=== PATIENT | female | born 1960 | race Native Hawaiian/Other Pacific Islander ===

== ENCOUNTER 2016-08-25 11:41 | Outpatient (CLI) | payer OTHER ==
[~2016-08-25] VITALS: Ht 167.6 cm; Wt 83.5 kg
[2016-08-25 11:50] VITALS: BP 114/70; TEMP 97.5
[2016-08-25 12:38] VITALS: BP 106/69; TEMP 97.5
== END 2016-08-25 23:45 | disposition home or self-care (01) ==
LOC: INF 11:41
DX: R51 Headache (principal); C71.9 Malignant neoplasm of brain, unspecified
CPT/HCPCS: 96372; J2300

== ENCOUNTER 2016-11-09 10:07 | Outpatient (CLI) | payer OTHER ==
[2016-11-09 11:13] LABS: PLATELET COUNT 176 K/uL (152-353)
[2016-11-09 11:15] LABS: POTASSIUM 4.6 mmol/L (3.6-5.2); SODIUM 137 mmol/L (136-145)
== END 2016-11-09 19:19 | disposition home or self-care (01) ==
LOC: LABW 10:07
PROVIDERS: Internal Medicine
DX: R51 Headache (principal); Z79.899 Other long term (current) drug therapy; Z51.81 Encounter for therapeutic drug level monitoring
CPT/HCPCS: 36415; 80053; 80061; 81000; 84439; 84443; 85027

== ENCOUNTER 2017-03-02 14:33 | Outpatient (CLI) | payer OTHER | END 2017-03-02 19:37 | disposition home or self-care (01) | LOC: RAD 14:33 | DX: M54.2 Cervicalgia (principal) ==

== ENCOUNTER 2017-07-06 02:21 | Emergency (ER) | payer OTHER ==
[~2017-07-06] VITALS: Ht 167.6 cm; Wt 77.1 kg
[2017-07-06 02:52] LABS: PLATELET COUNT 184 K/uL (152-353)
[2017-07-06 03:11] LABS: POTASSIUM 3.6 mmol/L (3.6-5.2); SODIUM 137 mmol/L (136-145)
[2017-07-06 04:04] VITALS: BP 116/54; TEMP 98.4
== END 2017-07-06 04:06 | disposition home or self-care (01) ==
LOC: ED 02:21
DX: K85.80 Other acute pancreatitis without necrosis or infection (principal)
CPT/HCPCS: 36415; 74022; 80053; 82150; 83690; 85027; 96372; 96374; 99284; J1885; J2405

== ENCOUNTER 2017-07-22 12:52 | Outpatient (CLI) | payer OTHER | END 2017-07-22 18:59 | disposition home or self-care (01) | LOC: US 12:52 | DX: K85.80 Other acute pancreatitis without necrosis or infection (principal) ==

== ENCOUNTER 2018-02-27 09:48 | Outpatient (CLI) | payer OTHER ==
[2018-02-27 10:20] LABS: PLATELET COUNT 166 K/uL (152-353)
[2018-02-27 11:09] LABS: POTASSIUM 4.7 mmol/L (3.6-5.2)
== END 2018-02-27 22:00 | disposition home or self-care (01) ==
LOC: LABW 09:48
PROVIDERS: Internal Medicine
DX: Z79.899 Other long term (current) drug therapy (principal); Z51.81 Encounter for therapeutic drug level monitoring; R10.84 Generalized abdominal pain; M13.88 Other specified arthritis, other site; R05 Cough
CPT/HCPCS: 36415; 80053; 81000; 82150; 83690; 84443; 84550; 85027; 85651

== ENCOUNTER 2018-03-13 08:33 | Outpatient (CLI) | payer OTHER | END 2018-03-13 21:03 | disposition home or self-care (01) | LOC: US 08:33 | DX: R10.84 Generalized abdominal pain (principal) ==

== ENCOUNTER 2022-05-11 08:26 | Outpatient (CLI) | payer OTHER | END 2022-05-11 19:29 | disposition home or self-care (01) | LOC: US 08:26 | PROVIDERS: ATTEND Specialist | DX: N28.89 Other specified disorders of kidney and ureter (principal) ==

== ENCOUNTER 2022-11-12 08:37 | Outpatient (CLI) | payer OTHER | END 2022-11-12 17:00 | disposition home or self-care (01) | LOC: US 08:37 | PROVIDERS: ATTEND Specialist | DX: N28.1 Cyst of kidney, acquired (principal) ==

== ENCOUNTER 2022-12-02 09:25 | Outpatient (CLI) | payer OTHER | END 2022-12-02 19:04 | disposition home or self-care (01) | LOC: CT 09:25 | PROVIDERS: ATTEND Specialist | DX: N13.39 Other hydronephrosis (principal); R26.89 Other abnormalities of gait and mobility; M54.17 Radiculopathy, lumbosacral region; N18.9 Chronic kidney disease, unspecified; M79.609 Pain in unspecified limb ==

== ENCOUNTER 2023-02-07 13:05 | Outpatient (CLI) | payer OTHER | END 2023-02-07 20:49 | disposition home or self-care (01) | LOC: CT 13:05 | PROVIDERS: ATTEND Nurse Practitioner Family | DX: R51.9 Headache, unspecified (principal); W19.XXXA Unspecified fall, initial encounter ==